=== PATIENT | female | born 1960 | race Caucasian/White ===

== ENCOUNTER 2017-07-01 16:33 | Emergency (ER) | payer MEDICAID ==
[~2017-07-01] VITALS: Ht 162.6 cm; Wt 62.0 kg
[~2017-07-01 16:33] MED LIST: ZITHTAB PO
[2017-07-01 16:39] VITALS: BP 113/58; PULSE 80; RESP 18; TEMP 97.8; O2SAT 97
--- NOTE | 2017-07-01 17:39 | PD ---
HPI Chief Complaint: Cold / Flu Symptoms Time Seen by Provider: 17:36 Travel History International Travel<30 days: No Contact w/Intl Traveler<30days: No Traveled to known affect area: No History of Present Illness HPI 56-year-old female presents emergency department complaint of nasal congestion, cough, subjective fevers 3 days. Denies chest pain, chest tightness, shortness of breath, wheezing. Denies sore throat or ear pain. Reports vomiting earlier this morning. Denies abdominal pain. Has been taking NyQuil and Tylenol for symptom management. Symptoms are mild in severity. Her son was sick with similar symptoms. No known allergies. Denies significant past medical history. Does not have an established primary care provider. No other modifying factors or associated signs and symptoms. PFSH Past Medical History Medical History: Denies Significant Hx Hx Anticoagulant Therapy: No Diabetes: No Diminished Hearing: No Influenza Vaccination: No ?: Not Menopausal: Yes Past Surgical History Surgical History: No Previous Surgery Other Surgery: Yes (LEFT ARM SKIN GRAFT) Social History Alcohol Use: No Tobacco Use: Yes (1 PPD) Substance Use: No Allergies-Medications (Allergen,Severity, Reaction): Coded Allergies: No Known Allergies (Verified Adverse Reaction, Unknown, 07/01/17) Reported Meds & Prescriptions Reported Meds & Active Scripts Active Nasonex Nasal [place] (Mometasone Furoate) 50 Mcg/Act Naspr 2 [place] EACH NARE DAILY PRN Tessalon Perles (Benzonatate) 100 Mg Cap 100 Mg PO TID PRN 3 Days Review of Systems Except as stated in HPI: all other systems reviewed are Neg Physical Exam Narrative GENERAL: Well-nourished, well-developed female patient, in no acute distress; afebrile, nontoxic-appearing SKIN: Warm and dry. No rash. HEAD: Atraumatic. Normocephalic. EYES: Pupils equal and round. No scleral icterus. No injection or drainage. ENT: Mucosa pink and moist. No erythema or exudates. No uvular edema. No uvular , palatal, or tonsillar deviation. Airway patent. EARS: Bilateral pinnae and external canals appear within normal limits. Bilateral tympanic membranes without erythema, dullness or perforation. NECK: Trachea midline. No lymphadenopathy. CARDIOVASCULAR: Regular rate and rhythm. No murmur appreciated. RESPIRATORY: No accessory muscle use. Clear to auscultation. Breath sounds equal bilaterally. No retractions or tachypnea. GASTROINTESTINAL: Abdomen soft, non-tender, nondistended. Hepatic and splenic margins not palpable. Bowel sounds are active 4 quadrants. MUSCULOSKELETAL: No obvious deformities. No clubbing. No cyanosis. No edema. NEUROLOGICAL: Awake and alert. Oriented 3. No obvious cranial nerve deficits. Motor grossly within normal limits. Normal speech. Moves all extremities. 5/5 strength to all extremities. PSYCHIATRIC: Appropriate mood and affect; insight and judgment normal. Data Data Last Documented VS Vital Signs Date Time Temp Pulse Resp B/P (MAP) Pulse Ox O2 Delivery O2 Flow Rate FiO2 07/01/17 16:39 97.8 80 18 113/58 (76) 97 Orders Orders Influenzae A/B Antigen (07/01/17 17:39) Ed Discharge Order (07/01/17 18:20) MDM Medical Decision Making Medical Screen Exam Complete: Yes Emergency Medical Condition: Yes Medical Record Reviewed: Yes Differential Diagnosis Viral illness, influenza, URI, bronchitis Narrative Course 56-year-old female with symptoms of viral illness. Physical exam is unremarkable. Patient reports subjective fever. She is afebrile and nontoxic appearing in the ER. Clear and equal throughout. Denies chest tightness, shortness of breath, wheezing. Influenza ordered. 1818: Influenza negative. Discussed viral illness and symptoms management. Instructed patient to follow up with primary care provider. Patient verbalizes understanding and agreement with treatment plan. Patient is medically cleared and stable for discharge. Discussed reasons to return to the emergency department. Patient agrees with treatment plan. The patients vital signs are stable and the patient is stable for outpatient follow-up and treatment. Patient discharged home, stable and in no acute distress. Diagnosis Primary Impression: Viral illness Referrals: [facility] Primary Care Physician Patient Instructions: Cold Symptoms (ED), General Instructions, Safe Use of Cough and Cold Medicines (ED) Departure Forms: Tests/Procedures, Work Release Enter return to work date: Jul 03, 2017 Additional Instructions: Ibuprofen or Tylenol as directed and as needed to reduce fever; may alternate ibuprofen and Tylenol as needed every 3 hours to minimize fever [id number] cold/flu medications as directed and as needed for symptom management Get plenty of sleep/rest Drink plenty of fluids to prevent dehydration; such as Gatorade, Powerade, Pedialyte [place] diet to encourage nutrition such as crackers, fruit, applesauce, toast, soup etc. Use an air humidifier/turn off ceiling fans Follow-up with your primary care provider Return immediately to the emergency department with worsening of symptoms Med/Other Pt SpecificInfo: Prescription(s) given Scripts Mometasone Nasal [place] (Nasonex Nasal [place]) 50 Mcg/Act Naspr 2 SPRAY EACH NARE DAILY Y for NASAL CONGESTION, #1 BOTTLE 0 Refills Prov: Nani Muñiz 07/01/17 Benzonatate (Tessalon Perles) 100 Mg Cap 100 MG PO TID Y for COUGH for 3 Days, CAP 0 Refills Prov: Nani Muñiz 07/01/17 Disposition: 01 DISCHARGE HOME Condition: Stable Nani Muñiz Jul 01, 2017 17:39
[2017-07-01] MEDS ORDERED: BENZ100 PO (18:19)
[2017-07-01] MEDS ORDERED: MOME17I EACH NARE (18:19)
== END 2017-07-01 18:31 | disposition home or self-care (01) ==
LOC: PHEFT 16:33
DX: B34.9 Viral infection, unspecified (principal); F17.210 Nicotine dependence, cigarettes, uncomplicated
CPT/HCPCS: 87804; 99284